=== PATIENT | female | born 1965 | race Caucasian/White ===

== ENCOUNTER 2020-11-06 15:06 | Emergency (ER) | payer MEDICARE, BC ==
[2020-11-06] MEDS ORDERED: Ketorolac 30 MG/ML SDV IVPUSH ONE (16:19)
[2020-11-06] MEDS ORDERED: Sodium Chloride 0.9% 10 ML Syringe FLUSH PRN (16:19)
[2020-11-06] MEDS ORDERED: methylPREDNISolone Sod Succ 250 MG in Dextrose 5% in Water 100 ML IV ONE ×2 (16:19)
--- NOTE | 2020-11-06 16:21 | EDM.PDOC ---
ED HPI GENERAL MEDICAL PROBLEM - General Chief Complaint: General Stated Complaint: MS ATTACK? Time Seen by Provider: 11/06/20 15:39 Source of Information: Reports: Patient, Family, Old Records, RN Notes Reviewed History Limitations: Reports: No Limitations - History of Present Illness INITIAL COMMENTS - FREE TEXT/NARRATIVE: 55-year-old female presents emergency department today for evaluation, complaint of dizziness and headache, she has known history of multiple sclerosis has been relatively exacerbation free for the last 4 years however this time she has had the symptoms that have progressively gotten worse over a week. She states usually she presents to the ER dose of steroids and her symptoms resolved she would like to proceed with that treatment plan. She is from the [facility] follows with neurology at [facility] Bilateral Leg Pain Score (Numeric/FACES): 7 Head Pain Score (Numeric/FACES): 5 - Related Data Allergies Allergy/AdvReac Type Severity Reaction Status Date / Time No Known Allergies Allergy Verified 11/06/20 15:31 Home Meds: Home Meds ARIPiprazole [Abilify] 5 mg PO BEDTIME 11/06/20 [History] Cholecalciferol (Vitamin D3) [Vitamin D3] 2,000 unit PO DAILY 11/06/20 [History] Dimethyl Fumarate 240 mg PO BID 11/06/20 [History] Docusate Sodium [Colace] 100 mg PO BID 11/06/20 [History] Erenumab-Aooe [Aimovig Autoinjector] 70 mg SQ ASDIRECTED 11/06/20 [History] Ferrous Sulfate, Dried [Iron] 160 mg PO DAILY 11/06/20 [History] Fluticasone Propionate [Flonase] 2 spray NS DAILY 11/06/20 [History] Furosemide [Lasix] 20 mg PO BID 11/06/20 [History] Hydrocodone/Acetaminophen [Hydrocodon-Acetaminophn 10-325] 1 each PO 5XDAY 11/06/20 [History] LORazepam [Ativan] 1 mg PO TID 11/06/20 [History] Meclizine [Antivert] 25 mg PO TID 11/06/20 [History] Modafinil [Provigil] 200 mg PO DAILY 11/06/20 [History] Multivitamin [Multi-Vitamin Daily] 1 each PO DAILY 11/06/20 [History] Omeprazole 40 mg PO ACBREAKFAST 11/06/20 [History] Prazosin [Minpress] 1 mg PO BEDTIME 11/06/20 [History] SUMAtriptan succinate [Imitrex] 100 mg PO BID PRN 11/06/20 [History] Venlafaxine [Effexor XR] 150 mg PO BID 11/06/20 [History] Vitamin B Complex [B Complex] 1 each PO DAILY 11/06/20 [History] buPROPion [buPROPion XL] 450 mg PO DAILY 11/06/20 [History] carBAMazepine [TEGretol XR] 100 mg PO BID 11/06/20 [History] hydrOXYzine HCL [Atarax] 25 mg PO BEDTIME 11/06/20 [History] predniSONE 10 mg PO DAILY #5 tablet 11/06/20 [Rx] predniSONE [Prednisone] 50 mg PO DAILY #11 tablet 11/06/20 [Rx] Past Medical History HEENT History: Reports: Cataract, Impaired Vision Genitourinary History: Reports: None Musculoskeletal History: Reports: Other (See Below) Other Musculoskeletal History: chronic leg pain Neurological History: Reports: MS, Other (See Below) Other Neuro History: RSD Psychiatric History: Reports: Anxiety, Depression Immunologic History: Reports: Other (See Below) Other Immunologic History: spleenectomy - Past Surgical History Head Surgeries/Procedures: Reports: None HEENT Surgical History: Reports: Cataract Surgery Female Surgical History: Reports: Other (See Below) 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 Neurological Surgical History: Reports: None Musculoskeletal Surgical History: Reports: Knee Replacement Social & Family History - Tobacco Use Tobacco Use Status *Q: Former Tobacco User Used Tobacco, but Quit: Yes Month/Year Tobacco Last Used: 2015 - Caffeine Use Caffeine Use: Reports: Energy Drinks, Soda - Recreational Drug Use Recreational Drug Use: No ED ROS GENERAL - Review of Systems Review Of Systems: See Below Constitutional: Reports: No Symptoms HEENT: Reports: No Symptoms Respiratory: Reports: No Symptoms Cardiovascular: Reports: No Symptoms GI/Abdominal: Reports: No Symptoms Neurological: Reports: Dizziness. Denies: Trouble Speaking, Difficulty Walking, Weakness, Change in Speech ED EXAM, GENERAL - Physical Exam Exam: See Below Exam Limited By: No Limitations General Appearance: Alert, WD/WN, No Apparent Distress Respiratory/Chest: No Respiratory Distress Neurological: Alert, Oriented, CN II-XII Intact, Normal Cognition, Normal Gait, No Motor/Sensory Deficits #1 Interpretation EKG Date: 11/06/20 Time: 16:22 Rhythm: NSR Griffin: Normal P-Wave: Present QRS: Normal ST-T: Normal QT: Normal Comparison: NA - No Prior EKG Course - Vital Signs Last Recorded V/S: Last Vital Signs Temp 95.7 F L 11/06/20 15:12 Pulse 72 11/06/20 17:46 Resp 20 11/06/20 17:46 BP 126/65 11/06/20 17:46 Pulse Ox 97 11/06/20 17:46 - Orders/Labs/Meds Orders: Active Orders 24 hr Category Date Time Status Peripheral IV Care [RC] . DIRECTED Care 11/06/20 16:19 Active Sodium Chloride 0.9% [Saline Flush] Med 11/06/20 16:19 Active 10 ml FLUSH ASDIRECTED PRN Peripheral IV Insertion Adult [OM.PC] Urgent Oth 11/06/20 16:19 Ordered Medication Orders Sodium Chloride (Sodium Chloride 0.9% 10 Ml Syringe) 10 ml FLUSH ASDIRECTED PRN PRN Reason: Keep Vein Open Last Admin: 11/06/20 17:10 Dose: 10 ml Documented by: [id number] Meds: Medications Generic Name Dose Route Start Last Admin Trade Name Freq PRN Reason Stop Dose Admin Sodium Chloride 10 ml 11/06/20 16:19 11/06/20 17:10 Sodium Chloride 0.9% 10 Ml Syringe FLUSH 10 ml ASDIRECTED PRN Administration Keep Vein Open Discontinued Medications Generic Name Dose Route Start Last Admin Trade Name Freq PRN Reason Stop Dose Admin Methylprednisolone Sodium 104 mls @ 200 mls/hr 11/06/20 16:19 11/06/20 17:05 Succinate 250 mg/ Dextrose/ IV 11/06/20 16:50 200 mls/hr Water ONETIME ONE Administration Ketorolac Tromethamine 30 mg 11/06/20 16:19 11/06/20 17:13 Ketorolac 30 Mg/Ml Sdv IVPUSH 11/06/20 16:20 30 mg ONETIME ONE Administration Departure - Departure Time of Disposition: 18:39 Disposition: Home, Self-Care 01 Condition: Fair Clinical Impression: Multiple sclerosis exacerbation - Discharge Information Prescriptions: predniSONE 10 mg PO DAILY #5 tablet predniSONE [Prednisone] 50 mg PO DAILY #11 tablet Referrals: PCP,None [Primary Care Provider] - Forms: ED Department Discharge Additional Instructions: Start the prednisone your medications have been faxed to [facility]ablo [facility], please contact neurology for further follow-up Sepsis Event Note (ED) - Focused Exam Vital Signs: Vital Signs Temp Pulse Resp BP Pulse Ox 11/06/20 17:46 72 20 126/65 97 11/06/20 17:25 77 18 120/87 95 11/06/20 16:34 75 19 130/75 97 11/06/20 16:04 74 20 135/74 96 11/06/20 15:12 95.7 F L 81 17 137/72 97 11/06/20 15:11 95.7 F L 81 17 137/72 97 - My Orders Last 24 Hours: My Active Orders 11/06/20 16:19 Peripheral IV Care [RC] . DIRECTED Sodium Chloride 0.9% [Saline Flush] 10 ml FLUSH ASDIRECTED PRN Peripheral IV Insertion Adult [OM.PC] Urgent - Assessment/Plan Last 24 Hours: My Active Orders 11/06/20 16:19 Peripheral IV Care [RC] . DIRECTED Sodium Chloride 0.9% [Saline Flush] 10 ml FLUSH ASDIRECTED PRN Peripheral IV Insertion Adult [OM.PC] Urgent Plan: Assessment Acuity = acute Site and laterality = MS exacerbation Etiology = unknown Manifestations = none Location of injury = Home Lab values = none Plan Initially given 250 mg prednisolone and then sent on a long steroid taper 100 mg for 3 days followed by 50 mg for 3 days followed by 25 mg for 3 days and 10 mg for 3 days 5 mg for 3 days then stop, in the meantime she is going to follow-up with neurology This note was dictated using evolso recognition software please call with any questions on syntax or grammar.
== END 2020-11-06 18:57 | disposition home or self-care (01) ==
LOC: JP.ED 15:06
DX: G35 Multiple sclerosis (principal); Z87.891 Personal history of nicotine dependence; Z79.899 Other long term (current) drug therapy
CPT/HCPCS: 96365; 96375; 99284; J1885; J2930